=== PATIENT | male | born 1985 | race Caucasian/White ===

== ENCOUNTER 2017-12-29 08:39 | Emergency (ER) | payer OTHER, BC ==
--- NOTE | 2017-12-29 09:05 | EDM.PDOC ---
ED HPI GENERAL MEDICAL PROBLEM - General Chief Complaint: Lower Extremity Injury/Pain Stated Complaint: LEFT LEG PAIN WORK RELATED Time Seen by Provider: 12/29/17 09:04 Source of Information: Reports: Patient - History of Present Illness INITIAL COMMENTS - FREE TEXT/NARRATIVE: HISTORY AND PHYSICAL: History of present illness: [Patient presents post fall off a ladder his feet were in a height of 5-6 feet, he fell the exact mechanism is unclear he was entangled in the latter he believes he struck his knee first on the ground he denies any head injury or loss of consciousness complains of 8 out of 10 knee pain with weightbearing no ankle pain some mild hip pain. No fever nausea vomiting chills sweats no chest pain shortness breath headache dizziness or palpitation no bowel or urine symptoms ] Review of systems: As per history of present illness and below otherwise all systems reviewed and negative. Past medical history: As per history of present illness and as reviewed below otherwise noncontributory. Surgical history: As per history of present illness and as reviewed below otherwise noncontributory. Social history: No reported history of drug or alcohol abuse. Family history: As per history of present illness and as reviewed below otherwise noncontributory. Physical exam: HEENT: Atraumatic, normocephalic, pupils reactive, negative for conjunctival pallor or scleral icterus, mucous membranes moist, throat clear, neck supple, nontender, trachea midline. Lungs: Clear to auscultation, breath sounds equal bilaterally, chest nontender. Heart: S1S2, regular, negative for clicks, rubs, or JVD. Abdomen: Soft, nondistended, nontender. Negative for masses or hepatosplenomegaly. Negative for costovertebral tenderness. Pelvis: Stable nontender. Genitourinary: Deferred. Rectal: Deferred. Extremities: Atraumatic, negative for cords or calf pain. Neurovascular unremarkable. Left lower extremity hip is nontender no bruising or swelling for range of passive motion, knee does have some anterior swelling no ballooning of the patella very superficial abrasion no bruising no redness warmth or tenderness limited exam due to pain cannot fully assess tendon/ligament structures, ankle seems to be unaffected no bruising nontender or swelling entire limb is neurovascularly intact Neuro: Awake, alert, oriented. Cranial nerves II through XII unremarkable. Cerebellum unremarkable. Motor and sensory unremarkable throughout. Exam nonfocal. Diagnostics: [Pelvis one view Left knee 3 views ] Therapeutics: [Knee immobilizer crutches nonweightbearing Toradol 10 mg by mouth 3 times a day when necessary #15 no refill Ice 20 minute intervals 3 times daily Follow-up with orthopedist ] Impression: [Fall Left knee pain]/contusion Definitive disposition and diagnosis as appropriate pending reevaluation and review of above. right knee Pain Score (Numeric/FACES): 6 - Related Data Allergies Allergy/AdvReac Type Severity Reaction Status Date / Time azithromycin Allergy Hives Verified 12/29/17 08:56 Home Meds: Home Meds . [No Known Home Meds] 12/29/17 [History] Past Medical History HEENT History: Reports: None Cardiovascular History: Reports: None Respiratory History: Reports: Asthma Gastrointestinal History: Reports: None Genitourinary History: Reports: None Musculoskeletal History: Reports: None Neurological History: Reports: None Psychiatric History: Reports: None Endocrine/Metabolic History: Reports: None Hematologic History: Reports: None Immunologic History: Reports: None Oncologic (Cancer) History: Reports: None Dermatologic History: Reports: None - Infectious Disease History Infectious Disease History: Reports: Chicken Pox - Past Surgical History Head Surgeries/Procedures: Reports: None HEENT Surgical History: Reports: None Cardiovascular Surgical History: Reports: None Respiratory Surgical History: Reports: None GI Surgical History: Reports: None Male Surgical History: Reports: None Neurological Surgical History: Reports: None Musculoskeletal Surgical History: Reports: None Oncologic Surgical History: Reports: None Dermatological Surgical History: Reports: None Social & Family History - Family History Family Medical History: Noncontributory - Tobacco Use Smoking Status *Q: Never Smoker Second Hand Smoke Exposure: No - Caffeine Use Caffeine Use: Reports: Coffee, Energy Drinks, Soda, Tea - Recreational Drug Use Recreational Drug Use: No Review of Systems - Review of Systems Review Of Systems: ROS reveals no pertinent complaints other than HPI. ED EXAM, GENERAL - Physical Exam Exam: See Below Course - Vital Signs Last Recorded V/S: Last Vital Signs Temp 97.5 F 12/29/17 08:56 Pulse 82 12/29/17 08:56 Resp 18 12/29/17 08:56 BP 138/77 12/29/17 08:56 Pulse Ox 96 12/29/17 08:56 Departure - Departure Time of Disposition: 10:54 Disposition: Home, Self-Care 01 Condition: Good Clinical Impression: Left knee pain, Contusion - Discharge Information Referrals: PCP,None [Primary Care Provider] - Forms: ED Department Discharge Additional Instructions: Medication as prescribed Knee immobilizer crutches nonweightbearing Return if symptoms persist or worsen Follow-up with orthopedist, call number below to arrange appropriate follow-up [facility] [address], [address] [place] [address] my orthopedic The following information is given to patients seen in the emergency department who are being discharged to home. This information is to outline your options for follow-up care. We provide all patients seen in our emergency department with a follow-up referral. The need for follow-up, as well as the timing and circumstances, are variable depending upon the specifics of your emergency department visit. If you don't have a primary care physician on staff, we will provide you with a referral. We always advise you to contact your personal physician following an emergency department visit to inform them of the circumstance of the visit and for follow-up with them and/or the need for any referrals to a consulting specialist. The emergency department will also refer you to a specialist when appropriate. This referral assures that you have the opportunity for follow-up care with a specialist. All of these measure are taken in an effort to provide you with optimal care, which includes your follow-up. Under all circumstances we always encourage you to contact your private physician who remains a resource for coordinating your care. When calling for follow-up care, please make the office aware that this follow-up is from your recent emergency room visit. If for any reason you are refused follow-up, please contact the [facility] emergency department at and asked to speak to the emergency department charge nurse.
--- NOTE | 2017-12-29 10:47 | CR ---
EXAMINATION: Pelvis HISTORY: Pain COMPARISON: 05/11/2010 TECHNIQUE: AP view FINDINGS: There is no acute osseous abnormality, dislocation, or fracture. Bone mineralization and carlos a int spaces appear normal. The SI joints are symmetric. IMPRESSION: No acute osseous abnormality identified.
--- NOTE | 2017-12-29 10:49 | CR ---
EXAMINATION: Left knee HISTORY: Pain COMPARISON: None TECHNIQUE: 3 views FINDINGS: There is no acute osseous abnormality, dislocation, or fracture. Bone mineralization and carlos a int spaces appear normal. No joint effusion or soft tissue swelling. IMPRESSION: Unremarkable left knee.
== END 2017-12-29 11:28 | disposition home or self-care (01) ==
LOC: MW.ED 08:39
DX: S80.02XA Contusion of left knee, initial encounter (principal); Z88.1 Allergy status to other antibiotic agents; W11.XXXA Fall on and from ladder, initial encounter
CPT/HCPCS: 72170; 72170-26; 73562-26-LT; 73562-LT; 99283

== ENCOUNTER 2021-08-21 06:20 | Day surgery (SDC) | payer BC ==
--- NOTE | 2021-08-21 07:31 | PCM.PREANE ---
Preanesthetic Assessment - Anesthesia/Transfusion/Family Hx Anesthesia History: Prior Anesthesia Without Reaction Family History of Anesthesia Reaction: No Transfusion History: No Prior Transfusion(s) - Review of Systems General: No Symptoms Pulmonary: No Symptoms Cardiovascular: No Symptoms Gastrointestinal: No Symptoms Neurological: No Symptoms Other: Reports: None - Physical Assessment NPO Status Date: 08/21/21 NPO Status Time: 00:00 Vital Signs: Last Vital Signs Temp 97.0 F 08/21/21 06:35 Pulse 67 08/21/21 06:35 Resp 16 08/21/21 06:35 BP 115/76 08/21/21 06:35 Pulse Ox 97 08/21/21 06:35 Height: 5 ft 11 in Weight: 216 lb ASA Class: 1 Mental Status: Alert & Oriented x3 Airway Class: Mallampati = 3 Dentition: Reports: Normal Dentition Thyro-Mental Finger Breadths: 3 Mouth Opening Finger Breadths: 3 ROM/Head Extension: Full Lungs: Clear to Auscultation, Normal Respiratory Effort Cardiovascular: Regular Rate, Regular Rhythm - Allergies Allergies/Adverse Reactions: Allergies Allergy/AdvReac Type Severity Reaction Status Date / Time azithromycin Allergy Hives Verified 12/29/17 08:56 latex Allergy itching, Verified 08/15/21 13:03 burning - Acknowledgements Anesthesia Type Planned: General Anesthesia Pt an Appropriate Candidate for the Planned Anesthesia: Yes Alternatives and Risks of Anesthesia Discussed w Pt/Guardian: Yes Pt/Guardian Understands and Agrees with Anesthesia Plan: Yes PreAnesthesia Questionnaire HEENT History: Reports: Other (See Below) Other HEENT History: wears glasses Cardiovascular History: Reports: None Respiratory History: Reports: Asthma Other Respiratory History: sports induced asthma as a teenager Gastrointestinal History: Reports: GERD, Hiatal Hernia Genitourinary History: Reports: None Musculoskeletal History: Reports: Fibromyalgia, Other (See Below) Other Musculoskeletal History: left knee patellar dislocation Neurological History: Reports: None Psychiatric History: Reports: Anxiety Endocrine/Metabolic History: Reports: Obesity/BMI 30+ Hematologic History: Reports: None Immunologic History: Reports: None Oncologic (Cancer) History: Reports: None Dermatologic History: Reports: None - Infectious Disease History Infectious Disease History: Reports: Chicken Pox - Past Surgical History Head Surgeries/Procedures: Reports: None HEENT Surgical History: Reports: Eye Surgery Other HEENT Surgeries/Procedures: eye surgery as a child Cardiovascular Surgical History: Reports: None Respiratory Surgical History: Reports: None GI Surgical History: Reports: None Male Surgical History: Reports: None Endocrine Surgical History: Reports: None Neurological Surgical History: Reports: None Musculoskeletal Surgical History: Reports: None Oncologic Surgical History: Reports: None Dermatological Surgical History: Reports: None - SUBSTANCE USE Tobacco Use Status *Q: Former Tobacco User Tobacco Use Within Last Twelve Months: No - HOME MEDS Home Medications: Home Meds Cetirizine [ZyrTEC] 10 mg PO DAILY 08/15/21 [History] Naproxen Sodium [Aleve] 1 tab PO ASDIRECTED PRN 08/15/21 [History] Omeprazole 20 mg PO BID 08/15/21 [History] - CURRENT (IN HOUSE) MEDS Current Meds: Current Medications Lactated Ringer's (Ringers, Lactated) 1,000 mls @ 125 mls/hr IV ASDIRECTED HO
[2021-08-21] MEDS ORDERED: fentaNYL 100 MCG/2 ML SDV ONE (07:32)
[2021-08-21] MEDS ORDERED: Propofol 200 MG/20 ML SDV ONE (07:32)
--- NOTE | 2021-08-21 08:12 | PCM.OPNOTE ---
- General Post-Op/Procedure Note Date of Surgery/Procedure: 08/21/21 Operative Procedure(s): EGD with biopsies Findings: Minimal gastritis small hiatal hernia findings [id number] Pre Op Diagnosis: GERD. Dysphagia Post-Op Diagnosis: Minimal gastritis. small hiatal hernia Anesthesia Technique: [facility] [place]geon: Caesar Jama Pathology: EGD biopsies Complications: None Condition: Good
--- NOTE | 2021-08-21 08:26 | PCM48HPAN ---
Post Anesthesia Note - EVALUATION WITHIN 48HRS OF ANESTHETIC Vital Signs in Normal Range: Yes Patient Participated in Evaluation: Yes Respiratory Function Stable: Yes Airway Patent: Yes Cardiovascular Function Stable: Yes Hydration Status Stable: Yes Pain Control Satisfactory: Yes Nausea and Vomiting Control Satisfactory: Yes Mental Status Recovered: Yes Vital Signs: Last Vital Signs Temp 97.0 F 08/21/21 06:35 Pulse 67 08/21/21 06:35 Resp 16 08/21/21 06:35 BP 115/76 08/21/21 06:35 Pulse Ox 97 08/21/21 06:35
--- NOTE | 2021-08-21 08:26 | PCM.POSTAN ---
POST ANESTHESIA ASSESSMENT - MENTAL STATUS Mental Status: Alert, Oriented - VITAL SIGNS Vital Signs: Last Vital Signs Temp 97.0 F 08/21/21 06:35 Pulse 67 08/21/21 06:35 Resp 16 08/21/21 06:35 BP 115/76 08/21/21 06:35 Pulse Ox 97 08/21/21 06:35 - RESPIRATORY Respiratory Status: Respiratory Rate WNL, Airway Patent, O2 Saturation Stable - CARDIOVASCULAR CV Status: Pulse Rate WNL, Blood Pressure Stable - GASTROINTESTINAL GI Status: No Symptoms - POST OP HYDRATION Hydration Status: Adequate & Stable
[2021-08-21] MEDS ORDERED: Lactated Ringers 1,000 ML IV SCH (09:00)
--- NOTE | 2021-08-21 13:56 | OR ---
SURGEON: LAM BAILEY MD DATE OF PROCEDURE: 08/21/2021 PREOPERATIVE DIAGNOSIS: Gastroesophageal reflux disease and dysphagia. POSTOPERATIVE DIAGNOSES: 1. Minimal gastritis. 2. Small hiatal hernia. ANESTHESIA: With Anesthesiology. EXTENT OF THE EGD: To the duodenum. LIMITATIONS: None. PRIMARY SURGEON: Lam Bailey MD PROCEDURE PERFORMED: Esophagogastroduodenoscopy with biopsies. REASON FOR PROCEDURE: Patient is a pleasant 36-year-old gentleman who says occasionally he will have some issues getting foods stuck, especially if he eats too fast. This happens about twice a month. He also gets heartburn, but he says he has only taken omeprazole once in a while. He says since taking the omeprazole on a daily basis, his heartburn has resolved and no longer having any dysphagia. The patient underwent upper GI study. This showed a small sliding hiatal hernia with likely Schatzki ring. He also has some esophageal dysmotility along some mild reflux. OPERATIVE NARRATIVE: Physical examination was done. The major risks, goals, and alternatives were explained to the patient. EKG, pulse, pulse oximetry, blood pressure, and capnography were monitored throughout the entire procedure. Continuous oxygen and sedation were provided by the anesthesiologist. The patient's sedation was began. After adequate sedation was achieved, the upper endoscope was advanced under direct visualization in the GI tract. The mucosa of the esophagus, GE junction, stomach, pylorus, and duodenum were inspected. Duodenum appeared normal. Scope was brought out. Both retro and antegrade views of the stomach were done. Patient had some very minimal gastritis. Biopsy of the antrum and pylorus area were taken to check for H pylori. Scope was brought to the GE junction. GE junction actually had a good Z-line with a good squamocolumnar junction. This was at approximately 42 cm. The patient had a very small, about a centimeter or less, hiatal hernia. Scope was brought up a little bit more. No circular lesions were seen in the distal esophagus. Scope was brought down to the GE junction to exam the distal esophagus several times, and no abnormalities were seen. Several biopsies were taken right around the GE junction and distal esophagus. The scope was brought back to the stomach. Stomach was deinsufflated. Scope was brought to the GE junction. There was good hemostasis. Scope was continued to be withdrawn. Again, the esophagus appeared normal. The esophagus was again examined for any ring or lesions but none were seen. Scope was now completely removed and the procedure was terminated. ENDOSCOPIC DIAGNOSES: 1. Minimal gastritis. 2. Small hiatal hernia. RECOMMENDATIONS: The patient will follow up in clinic to go over his pathology. He should continue his omeprazole. If the patient continues to have issues, he might need to have a manometry to further evaluate his esophageal dysmotility seen on the upper GI swallow. GENET PAIZ /[id number] MTDD
== END 2021-08-21 08:54 | disposition home or self-care (01) ==
LOC: MW.SDS 06:20
PROVIDERS: ATTEND Surgery
DX: K21.9 Gastro-esophageal reflux disease without esophagitis (principal); K29.70 Gastritis, unspecified, without bleeding; K44.9 Diaphragmatic hernia without obstruction or gangrene; Z88.1 Allergy status to other antibiotic agents; E66.9 Obesity, unspecified; J45.909 Unspecified asthma, uncomplicated; Z98.890 Other specified postprocedural states; Z79.899 Other long term (current) drug therapy; Z91.040 Latex allergy status; Z87.891 Personal history of nicotine dependence
CPT/HCPCS: 43239; 88305; 88342; J2704; J3010; 00731

== ENCOUNTER 2022-04-01 10:21 | Emergency (ER) | payer BC ==
[2022-04-01] MEDS ORDERED: Lidocaine 2% 5 ML SDV INJECT ONE (10:27)
[2022-04-01] MEDS ORDERED: Diphtheria,Pertussis(Acell),Tetanus Vaccine 0.5 ML Syringe IM ONE (10:27)
[2022-04-01] MEDS ORDERED: Lidocaine 1% 20 ML MDV INJECT ONE (10:36)
[2022-04-01] MEDS ORDERED: Lidocaine 1% 5 ML VIAL INJECT ONE (10:41)
== END 2022-04-01 11:16 | disposition home or self-care (01) ==
LOC: MW.ED 10:21
DX: S61.011A Laceration without foreign body of right thumb without damage to nail, initial encounter (principal); E66.9 Obesity, unspecified; Z68.30 Body mass index [BMI] 30.0-30.9, adult; Z88.1 Allergy status to other antibiotic agents; Z91.040 Latex allergy status; Z23 Encounter for immunization; W26.0XXA Contact with knife, initial encounter
CPT/HCPCS: 12001; 90471; 90715; 99282